=== PATIENT | female | born 1990 | race Caucasian/White ===

== ENCOUNTER → 2016-10-18 | Outpatient (CLI) | payer OTHER ==
[~2016-10-18] MED LIST: INDO25SU PO; INDO50CA PO; ISOVUE-370 76% 100ML VIAL (Q9967) As Ordered ONE; PRENCHW PO
--- NOTE | 2016-10-18 14:52 | REP ---
HYSTEROSALPINGOGRAPHY: HISTORY: Primary infertility. 21 seconds of fluoroscopy time was utilized. FINDINGS: A sequence of four fluoroscopic spot radiographs of the pelvis are taken during the injection of endometrial contrast. These document a retroverted, retroflexed but otherwise normal-appearing endometrial cavity and patent bilateral unremarkable fallopian tubes. IMPRESSION: Retroverted retroflexed uterus. Bilateral tubal patency is observed. Signed by Jorje Breen MD 10/19/2016 10:03 A
== END ==
LOC: M RADPRO 11:44
PROVIDERS: ATTEND Obstetrics & Gynecology
DX: N97.9 Female infertility, unspecified (principal)
CPT/HCPCS: 58340; 74740; Q9967

== ENCOUNTER 2016-10-28 07:35 | Emergency (ER) | payer OTHER ==
[~2016-10-28] VITALS: Ht 157.5 cm; Wt 77.3 kg
[2016-10-28] MEDS ORDERED: PRENCHW PO (07:40)
--- NOTE | 2016-10-28 08:55 | REP ---
Clinical: Heel pain . Technique: AP, lateral, bilateral oblique views right foot . Findings: The osseous structures and joint spaces are intact and normal. There is no evidence for acute fracture or dislocation. Surrounding soft tissues are unremarkable. No subcutaneous emphysema or radiodense foreign body. Impression: Normal right foot examination. No acute fracture or dislocation. Signed by Rambo Nina MD 10/28/2016 08:47 A
[2016-10-28] MEDS ORDERED: INDO25SU PO (09:31)
[2016-10-28] MEDS ORDERED: INDO50CA PO (09:40)
[2016-10-28 09:42] VITALS: BP 116/69
== END 2016-10-28 09:43 | disposition home or self-care (01) ==
LOC: M ED 07:35
DX: M19.071 Primary osteoarthritis, right ankle and foot (principal)